=== PATIENT | male | born 1950 | race Hispanic/Latino ===

== ENCOUNTER 2018-06-21 20:17 | Emergency (ER) | payer BC, MEDICARE ==
[2018-06-21 21:56] VITALS: BP 159/80
[2018-06-22] MEDS ORDERED: TORADOL ONE (00:03)
[2018-06-22] MEDS ORDERED: TORADOL IM ONE (00:07)
[2018-06-22 00:33] LABS: Hematocrit 48.1 % (35.5-45.6); Hemoglobin 16.5 gm/dl (11.8-15.2); Mean Corpuscular HGB Conc 34 % (32-34); Mean Corpuscular Volume 91 fl (84-94); Platelet Count 213 K/mm3 (140-440)
[2018-06-22 00:46] LABS: BUN/Creatinine Ratio 20; Blood Urea Nitrogen 20 mg/dL (9-20); Calcium 9.8 mg/dL (8.4-10.2); Hemolysis Index 185
[2018-06-22 01:35] LABS: Bilirubin,Urine NEG (Negative); Blood,Urine LG (Negative); Color,Urine Yellow (Yellow); Mucus,Urine FEW /HPF; Urobilinogen,Urine < 2.0 mg/dL (<2.0)
--- NOTE | 2018-06-22 03:10 | Emergency Department Report ---
ED Abdominal Pain HPI - General Chief Complaint: Abdominal Pain Stated Complaint: ABDOMINAL PAIN Time Seen by Provider: 06/22/18 03:03 Source: patient Mode of arrival: Ambulatory Limitations: No Limitations - History of Present Illness Initial Comments: Patient is a 68-year-old white male who presents for renal stones history of renal stones or dysuria urinary hesitancy states he's menstrual last 2 days and unable to urology til next week there is no fever no chills no nausea vomiting back pain his left flank radiating suprapubic /10 routine constant for the last 3 days MD Complaint: flank pain Onset/Timin -: days(s) Radiation: R flank Migration to: no migration Severity: moderate Severity scale (0 -10): 4 Quality: cramping (Zyrtec I is 3 while awake and fall she will see bowel using mostly), aching Consistency: constant Improves With: nothing Worsens With: nothing Associated Symptoms: denies: nausea, vomiting, diarrhea, fever, chills - Related Data Home Medications Medication Instructions Recorded Confirmed Last Taken Ciprofloxacin [Cipro] 250 mg PO Q12H 01/12/13 11/30/14 11/24/14 Tamsulosin [Flomax] 0.4 mg PO QDAY 01/12/13 11/29/14 11/15/14 Lisinopril [Zestril TAB] 10 mg PO QDAY 11/30/14 11/30/14 11/29/14 16:45 Previous Rx's Medication Instructions Recorded Last Taken Type Ciprofloxacin HCl [Cipro] 500 mg PO BID 10 Days #20 tablet 06/22/18 Unknown Rx Tamsulosin HCl [Flomax] 0.4 mg PO DAILY #30 cap.er.24h 06/22/18 Unknown Rx Tramadol HCl [Ultram] 50 mg PO Q6H #12 tablet 06/22/18 Unknown Rx Allergies Allergy/AdvReac Type Severity Reaction Status Date / Time No Known Allergies Allergy Verified 11/14/14 19:18 ED Review of Systems ROS: Stated complaint: ABDOMINAL PAIN Other details as noted in HPI Constitutional: denies: chills, fever Eyes: denies: eye pain, eye discharge, vision change ENT: denies: ear pain, throat pain Respiratory: denies: cough, shortness of breath, wheezing Cardiovascular: denies: chest pain, palpitations Endocrine: no symptoms reported Gastrointestinal: denies: abdominal pain, nausea, vomiting, diarrhea, melena Genitourinary: urgency, dysuria, frequency. denies: hematuria, discharge, testicular pain, testicular mass Musculoskeletal: denies: back pain, joint swelling, arthralgia Skin: denies: rash, lesions Neurological: denies: headache, weakness, paresthesias Psychiatric: denies: anxiety, depression Hematological/Lymphatic: denies: easy bleeding, easy bruising ED Past Medical Hx - Past Medical History Previous Medical History?: Yes Hx Hypertension: Yes (2013) Hx Seizures: No Hx Kidney Stones: Yes Hx HIV: No - Social History Smoking Status: Never Smoker - Medications Home Medications: Home Medications Medication Instructions Recorded Confirmed Last Taken Type Ciprofloxacin [Cipro] 250 mg PO Q12H 01/12/13 11/30/14 11/24/14 History Tamsulosin [Flomax] 0.4 mg PO QDAY 01/12/13 11/29/14 11/15/14 History Lisinopril [Zestril TAB] 10 mg PO QDAY 11/30/14 11/30/14 11/29/14 16:45 History Ciprofloxacin HCl [Cipro] 500 mg PO BID 10 Days #20 tablet 06/22/18 Unknown Rx Tamsulosin HCl [Flomax] 0.4 mg PO DAILY #30 cap.er.24h 06/22/18 Unknown Rx Tramadol HCl [Ultram] 50 mg PO Q6H #12 tablet 06/22/18 Unknown Rx ED Physical Exam - General Limitations: No Limitations General appearance: alert, in no apparent distress - Head Head exam: Present: atraumatic, normocephalic - Eye Eye exam: Present: normal appearance, PERRL - ENT ENT exam: Present: mucous membranes moist - Expanded ENT Exam Expanded Ear exam: Present: normal external inspection Mouth exam: Present: normal external inspection Throat exam: Positive: normal inspection. Negative: tonsillar erythema, tonsillomegaly, tonsillar exudate, R peritonsillar mass, L peritonsillar mass - Neck Neck exam: Present: normal inspection, full ROM. Absent: tenderness, meningismus, lymphadenopathy, thyromegaly - Respiratory Respiratory exam: Present: normal lung sounds bilaterally. Absent: respiratory distress, wheezes, rhonchi, chest wall tenderness - Cardiovascular Cardiovascular Exam: Present: regular rate, normal rhythm, normal heart sounds. Absent: systolic murmur, diastolic murmur, rubs, gallop - GI/Abdominal GI/Abdominal exam: Present: soft. Absent: distended, tenderness, guarding, rebound, bruit, hernia - Rectal Rectal exam: Present: deferred - exam: Present: normal inspection External exam: Present: normal external exam. Absent: erythema, swelling, lesions, ecchymosis, bleeding - Extremities Exam Extremities exam: Present: normal inspection, full ROM, normal capillary refill. Absent: tenderness, pedal edema, joint swelling, calf tenderness - Back Exam Back exam: Present: normal inspection, full ROM, tenderness, muscle spasm. Absent: CVA tenderness (R), CVA tenderness (L), paraspinal tenderness, vertebral tenderness, rash noted - Neurological Exam Neurological exam: Present: alert, oriented X3, CN II-XII intact, normal gait. Absent: motor sensory deficit, reflexes normal - Psychiatric Psychiatric exam: Present: normal affect, normal mood, suicidal ideation. Absent: depressed, agitated, anxious, flat affect, manic, homicidal ideation - Skin Skin exam: Present: warm, dry, intact, normal color, cyanosis, diaphoretic, erythema, urticaria, petechiae, pallor, abrasion, ecchymosis. Absent: rash ED Course Vital Signs 06/21/18 06/21/18 06/22/18 21:54 23:53 03:10 Temperature 98.5 F 98.5 F Pulse Rate 61 80 60 Respiratory 18 18 16 Rate Blood Pressure 159/80 159/80 O2 Sat by Pulse 96 96 97 Oximetry ED Medical Decision Making - Lab Data Result diagrams: 06/22/18 00:20 06/22/18 00:20 Critical care attestation.: If time is entered above; I have spent that time in minutes in the direct care of this critically ill patient, excluding procedure time. ED Disposition Clinical Impression: Kidney stones Disposition: DC-01 TO HOME OR SELFCARE Is pt being admited?: No Does the pt Need Aspirin: No Condition: Stable Prescriptions: Ciprofloxacin HCl [Cipro] 500 mg PO BID 10 Days #20 tablet Tamsulosin HCl [Flomax] 0.4 mg PO DAILY #30 cap.er.24h Tramadol HCl [Ultram] 50 mg PO Q6H #12 tablet Referrals: [facility] [Other] - 3-5 Days DALLAS CONTRERAS MD [Staff Physician] - 3-5 Days Forms: Work/School Release Form(ED) Time of Disposition: 03:21
== END 2018-06-22 03:10 | disposition home or self-care (01) ==
LOC: ED 20:17
DX: N20.0 Calculus of kidney (principal); I10 Essential (primary) hypertension
CPT/HCPCS: 36415; 80048; 81001; 85027; 96372; 99283; J1885